=== PATIENT | female | born 2005 | race Caucasian/White ===

== ENCOUNTER 2025-06-28 15:19 | Emergency (ER) | payer MEDICAID, SELFPAY ==
[2025-06-28 15:32] VITALS: BP 102/74; PULSE 92; RESP 18; TEMP 36.3; O2SAT 99
--- NOTE | 2025-06-28 16:07 | ED.SKABFB ---
HPI - Skin/Abscess/Foreign Bdy General Chief complaint: Skin/Abscess/Foreign Body Stated complaint: RT Eyebrow infection Time Seen by Provider: 06/28/25 15:40 Source: patient Mode of arrival: ambulatory Limitations: no limitations History of Present Illness HPI narrative: Meche is a 19-year-old female patient presenting to the clinic today with complaints of a possible right eyebrow piercing infection and she expressed out a lot of pus. States she changed her jewelry. Redness has gone down but still having some drainage and mild tenderness. No fevers, chills, body aches. Related Data Home Medications ?Medication ?Instructions ?Recorded ?Confirmed ?Last Taken ?Type etonogestrel 68 mg subdermal 1 implant subdermal ONCE 06/28/25 06/28/25 Unknown History implant (Nexplanon) Allergies Allergy/AdvReac Type Severity Reaction Status Date / Time latex Allergy Mild Hives Verified 06/28/25 15:42 prednisone Allergy Mild Hives Verified 06/28/25 15:42 sulfamethoxazole (From Allergy Unknown Unknown Verified 06/28/25 15:42 Bactrim) trimethoprim (From Bactrim) Allergy Unknown Unknown Verified 06/28/25 15:42 Review of Systems Review of Systems: Pertinent positives per HPI. Patient denies any fever, chills, rash, headache, visual changes, dizziness, cough, shortness of breath, chest pain, palpitations, nausea, vomiting, diarrhea, constipation, abdominal pain, or any urinary issues. PMFSH Comments At the time of my signature, I reviewed and agree with the nursing past medical, surgical, social, and family history. There is no relevant family history pertinent to the patient complaint. Exam Narrative: General: Well-developed, well nourished, in no apparent distress Head: Normocephalic, atraumatic. Cardio: Regular rate and rhythm, s1 and s2 normal, no murmur appreciated. Resp: Clear to auscultation bilaterally, no rhonchi, rales, wheezing or rubs. Integumentary: [address], warm, and dry, intact without lesion, no rashes. Old drainage around the piercing. No redness, swelling, or erythema palpable, mildly tenderness to palpation Course Course Emergency Course: Portions of this record may have been created with voice recognition software. Level of Care: Express Care Visit Vital Signs Vital signs: Vital Signs Temperature 36.3 C L 06/28/25 15:32 Pulse Rate 92 06/28/25 15:32 Respiratory Rate 18 06/28/25 15:32 Blood Pressure 102/74 06/28/25 15:32 Pulse Oximetry 99 06/28/25 15:32 Oxygen Delivery Room Air 06/28/25 15:32 Temperature 36.3 C L 06/28/25 15:32 Pulse Rate 92 06/28/25 15:32 Respiratory Rate 18 06/28/25 15:32 Blood Pressure 102/74 06/28/25 15:32 Pulse Oximetry 99 06/28/25 15:32 Oxygen Delivery Room Air 06/28/25 15:32 Vital signs reviewed MDM - Skin/Abscess/Foreign Bdy MDM Narrative Medical decision making narrative: At the time of visit patient is resting comfortably on the exam table. Patient appears to be nontoxic. Complaints of a possible right eyebrow piercing infection and she expressed out a lot of pus. States she changed her jewelry. Redness has gone down but still having some drainage and mild tenderness. No fevers, chills, body aches. On exam patient has some old drainage around the piercing. No redness, swelling, or erythema palpable Plan: Patient is concerned about a eyebrow piercing infection. Will send in prescription for mupirocin cream. Supportive measures were discussed with the patient and they voiced understanding discharge instructions and agrees to treatment plan. Return precautions reviewed Differential Diagnosis Differential diagnosis: Likely abscess of skin or subcutaneous tissue, cellulitis and other (Piercing infection) Discharge Plan Discharge Clinical Impression: Piercing of right eyebrow with infection Qualifiers: Encounter type: initial encounter Qualified Code(s): S01.131A - Puncture wound without foreign body of right eyelid and periocular area, initial encounter Patient Disposition: Home Condition: Stable Instructions: Antibiotic Form Additional Instructions: Apply mupirocin cream to the affected area as directed Clean the area with soap and water daily and pat dry If it becomes further infected consider removing the jewelry Follow-up with your PCP in 5-7 days Patient Language: Croatian Prescriptions: New mupirocin [Centany] 2 % ointment 1 applic topical BID 7 Days Qty: 22 0RF No Action Nexplanon 68 mg implant 1 implant subdermal ONCE Rx Instructions: as a single dose Follow-up/Referrals: Marcello,Donna Shen MD [Primary Care Provider, Unknown] Time of Disposition: 15:49 Quality NIHSS Nursing Documentation ED NIHSS nursing documentation: reviewed/agree
== END 2025-06-28 16:00 | disposition home or self-care (01) ==
PROVIDERS: Emergency Provider Nurse Practitioner Family; PCP Family Medicine
DX: S01.131A Puncture wound without foreign body of right eyelid and periocular area, initial encounter (principal); L08.9 Local infection of the skin and subcutaneous tissue, unspecified; K21.9 Gastro-esophageal reflux disease without esophagitis; Z86.16 Personal history of COVID-19
CPT/HCPCS: 99213; G0463